=== PATIENT | female | born 1980 | race Two or more races ===

== ENCOUNTER 2025-06-03 01:57 | Emergency (ER) | payer OTHER ==
[~2025-06-03] VITALS: Ht 160 cm; Wt 77.1 kg
[2025-06-03] MEDS ORDERED: FAMOtidine 10 MG/ML (4ML VIAL) IV PUSH STA (02:37)
[2025-06-03] MEDS ORDERED: METHYLPREDNISOLONE SOD SUCC 125 MG VIAL IV STA (02:37)
[2025-06-03] MEDS ORDERED: EPINEPHRINE HCL/PF 1 MG/ML AMPUL SUBCUTANEO STA (02:38)
[2025-06-03] MEDS ORDERED: EPINEPHRINE HCL/PF 1 MG/ML AMPUL ONE (02:41)
[2025-06-03] MEDS ORDERED: METHYLPREDNISOLONE SOD SUCC 125 MG VIAL ONE (02:42)
[2025-06-03] MEDS ORDERED: FAMOTIDINE/PF 20 MG/2 ML VIAL ONE (02:42)
== END 2025-06-03 03:54 | disposition home or self-care (01) ==
LOC: ER 01:57
DX: L50.0 Allergic urticaria (principal); Z88.6 Allergy status to analgesic agent; Z88.8 Allergy status to other drugs, medicaments and biological substances